=== PATIENT | male | born 1975 | race Caucasian/White ===

== ENCOUNTER 2017-07-30 22:22 | Emergency (ER) | payer MEDICARE, OTHER ==
[~2017-07-30] VITALS: Ht 172.7 cm; Wt 92.0 kg
[2017-07-30 22:25] VITALS: BP 135/80; PULSE 115; RESP 18; TEMP 99.3; O2SAT 95
--- NOTE | 2017-07-30 22:55 | PD ---
HPI Chief Complaint: Fever Time Seen by Provider: 22:45 Travel History International Travel<30 days: No Contact w/Intl Traveler<30days: No Traveled to known affect area: No History of Present Illness HPI 41-year-old male presents to the emergency department by private transportation for evaluation of possible recurrent UTI or prostatitis. Patient states he has chronic colonization with recurrent prostatitis and UTIs. Patient is paraplegic. Patient has 181 1 injury with laminectomy. Patient self catheters. Patient is frequently on oral antibiotic 21 day course for recurrent UTI or prostatitis. Patient most recently 3 weeks ago was on a 21 day course of Macrobid. Patient most recently has had urine cultures that show organism Escherichia coli and resistant to quinolones Bactrim. Patient is good sensitivity to Augmentin Unasyn and gentamicin. Patient states 2 days ago had upper respiratory tract infection symptoms with sore throat fever take Tylenol symptoms seem to resolve fever associated with sudden onset myalgias and arthralgias and then today had recurrent fever and decided to come to the emergency room for evaluation. Patient states symptoms began around 3 PM today. Patient states this is his typical presentation for recurrent UTI prostatitis requiring oral antibiotic. Patient is visiting from out of town and does not have access to his primary care provider. [facility] Past Medical History Narrative Medical T12-L1 spinal cord injury with paraplegia, soft, recurrent UTI, recurrent prostatitis, tachycardia; no tobacco use nursing notes reviewed Diminished Hearing: No Immunizations Current: No Tetanus Vaccination: Unknown Influenza Vaccination: No ?: Not Social History Alcohol Use: No Tobacco Use: No Substance Use: No Allergies-Medications (Allergen,Severity, Reaction): Coded Allergies: No Known Allergies (Unverified , 07/30/17) Reported Meds & Prescriptions Reported Meds & Active Scripts Active No Active Prescriptions or Reported Medications Review of Systems Except as stated in HPI: all other systems reviewed are Neg General / Constitutional: Positive: Fever, No: Chills HENT: Positive: Sore Throat, Congestion Cardiovascular: No: Chest Pain or Discomfort Respiratory: No: Shortness of Breath Gastrointestinal: No: Diarrhea, Abdominal Pain Genitourinary: Positive: Dysuria, Flank Pain Musculoskeletal: Positive: Myalgias, Arthralgias Skin: No Rash Neurologic: No: Weakness Psychiatric: No: Anxiety Hematologic/Lymphatic: No: Easy Bruising Physical Exam Narrative GENERAL: Well-developed well-nourished male sitting in wheelchair in no acute distress toward distress with tachycardia SKIN: Warm and dry. HEAD: Normocephalic. EYES: No scleral icterus. No injection or drainage. ENT: Mucous membranes moist posterior pharynx tonsillar exudative change with mild erythema NECK: Supple, trachea midline. No JVD or lymphadenopathy. Supple no meningismus no nuchal rigidity CARDIOVASCULAR: Increased Regular rate and rhythm without murmurs, gallops, or rubs. RESPIRATORY: Breath sounds equal bilaterally. No accessory muscle use. GASTROINTESTINAL: Abdomen soft, non-tender, nondistended. MUSCULOSKELETAL: No cyanosis, or edema. Data Data Last Documented VS Vital Signs Date Time Temp Pulse Resp B/P (MAP) Pulse Ox O2 Delivery O2 Flow Rate FiO2 07/30/17 22:25 99.3 115 18 135/80 (98) 95 Orders Orders Urinalysis - C+S If Indicated (07/30/17 22:45) Influenzae A/B Antigen (07/30/17 22:45) Group A Rapid Strep Screen (07/30/17 22:45) Acetaminophen (Tylenol) (07/30/17 23:00) Amoxicil-Clavulanate (Augmentin) (07/30/17 23:45) Blood Glucose (07/30/17 23:43) Ed Discharge Order (07/30/17 23:47) Labs Laboratory Tests Test 07/30/17 22:49 Urine Collection Type CATH Urine Color STRAW Urine Turbidity CLEAR Urine pH 5.5 Urine Specific [place] 1.011 Urine Protein 100 mg/dL Urine Glucose (UA) 1000 OR GREATER mg/dL Urine Ketones NEG mg/dL Urine Occult Blood MOD Urine Nitrite NEG Urine Bilirubin NEG Urine Leukocyte Esterase NEG Urine RBC 0-3 /hpf Urine Amorphous Sediment SMALL Urine Mucus RARE /lpf Urine Sperm RARE Microscopic Urinalysis Comment CATH-CULT NOT IND MDM Medical Decision Making Medical Screen Exam Complete: Yes Emergency Medical Condition: Yes Medical Record Reviewed: Yes Interpretation(s) Rapid strep antigen: Positive Influenza A/B antigen: Negative Urinalysis: glucosuria culture, not indicated Differential Diagnosis UTI prostatitis influenza tonsillitis sepsis Narrative Course Patient provides self catheter urine specimen; rapid strep antigen and influenza antigen specimens collected; patient offered oral dose of acetaminophen Patient informed of lab results given first dose of antibiotic in the emergency department patient is noted to have glucosuria; postprandial random glucose/Accu -Chek: 144 Patient is stable for outpatient management and close follow-up with his primary care provider history to the emergency department for any concerns or change in condition patient provided prescription for Augmentin Diagnosis Primary Impression: Strep pharyngitis Referrals: Primary Care Physician call for appointment Patient Instructions: General Instructions Additional Instructions: Increase fluid hydration Follow-up with her primary care provider Monitor temperature every 4 hours with thermometer take acetaminophen/Tylenol every 4 hours for fever 100.4F or greater and/or use ibuprofen/Advil/Motrin 600 mg as often as every 6 hours or 800 mg as often as every 8 hours as needed for fever 100.4F or greater or for pain associated with inflammation Complete course of antibiotic as prescribed Return to the emergency department for any concerns or change in condition Med/Other Pt SpecificInfo: Prescription(s) given Scripts Amoxicillin-Clavulanate (Augmentin) 875-125 Mg Tab 1 TAB PO BID for Infection for 10 Days, #20 TAB 1 Refill Prov: Padmini Reynaga MD 07/30/17 Disposition: 01 DISCHARGE HOME Condition: Stable Padmini Reynaga MD Jul 30, 2017 22:55
[2017-07-30] MEDS ORDERED: ACETAMINOPHEN 325 MG TAB PO ONE (23:00)
[2017-07-30 23:09] LABS: BILIRUBIN, URINE NEG (NEG); BLOOD, URINE MOD (NEG); GLUCOSE,URINE 1000 OR GREATER mg/dL (NEG); KETONE, URINE NEG (NEG); NITRITE,URINE NEG (NEG); PH, URINE 5.5 (5.0-8.5); URINE LEUKOCYTE ESTERASE NEG (NEG)
[2017-07-30 23:29] LABS: URINE COLOR STRAW (YELLW/STRAW)
[2017-07-30 23:31] LABS: RBC, URINE 0-3 /hpf (0-3); SPERM, URINE RARE
[2017-07-30 23:32] LABS: AMORPHOUS SEDIMENT, URINE SMALL; MUCUS URINE RARE /lpf (OCC)
[2017-07-30] MEDS ORDERED: AMOXICILLIN/CLAVULANATE K 875 MG TAB PO ONE (23:45)
[2017-07-30] MEDS ORDERED: AUGM875T3 PO (23:49)
== END 2017-07-30 23:57 | disposition home or self-care (01) ==
LOC: PHED 22:22
DX: J02.0 Streptococcal pharyngitis (principal); B95.0 Streptococcus, group A, as the cause of diseases classified elsewhere; G82.20 Paraplegia, unspecified; Z87.440 Personal history of urinary (tract) infections
CPT/HCPCS: 81001; 87804; 87880; 99283

== ENCOUNTER 2017-08-16 21:37 | Emergency (ER) | payer MEDICARE, OTHER ==
[~2017-08-16 21:37] MED LIST: AUGM875T3 PO
== END 2017-08-16 21:58 | disposition left against medical advice (07) ==
LOC: PHED 21:37
DX: Z53.21 Procedure and treatment not carried out due to patient leaving prior to being seen by health care provider (principal)
CPT/HCPCS: 99281